=== PATIENT | male | born 1990 | race Two or more races ===

== ENCOUNTER 2017-06-14 15:17 | Inpatient (IN) | payer SELFPAY ==
[~2017-06-14] VITALS: Ht 167.6 cm; Wt 58.7 kg
[2017-06-14] MEDS ORDERED: PANTOPRAZOLE 40 MG/10 ML VIAL IV ONE (22:15)
[2017-06-14] MEDS ORDERED: PHYTONADIONE (VIT K)10 MG/ML 1ML VIAL SUBCUT ONE (22:15)
[2017-06-14 22:18] LABS: Basophils # (auto) 0.1 uL; Eosinophils # (auto) 0.1 uL; Hematocrit 23.6 % (41.0-53.0); Hemoglobin 7.9 g/dL (13.5-17.5)
[2017-06-14 22:20] LABS: Basophils % (auto) 1.1 % (0.0-2.0); Eosinophils % (auto) 0.8 % (0.0-7.0); Lymphocytes # (auto) 2.8 uL; Lymphocytes % (auto) 37.8 % (10.0-50.0); Mean Corpuscular Hemoglobin 27.5 pg (28.0-32.0); Mean Corpuscular Hgb Conc. 33.5 g/dL (32.0-36.0); Mean Platelet Volume 7.1 fL (6.9-10.8); Monocytes # (auto) 0.6 uL; Monocytes % (auto) 7.6 % (0.0-12.0); Neutrophils % (auto) 52.7 % (37.0-80.0); Platelet Count (auto) 279 10^3/uL (140-450); Red Cell Distribution Width 16.9 % (11.8-14.3); White Blood Cell 7.5 10^3/uL (4.4-10.8)
[2017-06-14 22:28] LABS: Urine Bilirubin Negative (Negative); Urine Blood Negative /uL (Negative); Urine Color Colorless (Yellow); Urine Glucose Normal (Normal); Urine Ketone Negative (Negative); Urine Nitrite Negative (Negative); Urine RBC 1 /hpf (0 - 3); Urine Urobilinogen Normal (Negative)
[2017-06-14 22:38] LABS: Albumin 3.3 g/dL (3.4-5.0); BUN/Creatinine Ratio 21.4; Bilirubin, Total 0.3 mg/dL (0.2-1.0); Calcium 7.8 mg/dL (8.5-10.1); Total Protein 7.3 g/dL (6.4-8.2)
[2017-06-14] MEDS ORDERED: SODIUM CHLORIDE 0.9% 1,000 ML IV ONE (23:56)
[2017-06-15] VITALS (10 sets, daily range): BP systolic 114–132; BP diastolic 69–85
[2017-06-15] MEDS ORDERED: ONDANSETRON HCL 4 MG/2 ML VIAL IV PRN (06:00)
[2017-06-15] MEDS ORDERED: MORPHINE SULF INJ 2 MG/ML SYRINGE 1ML IV PRN (06:00)
[2017-06-15] MEDS ORDERED: SODIUM CHLORIDE 0.9% 1,000 ML IV SCH (06:00)
[2017-06-15] MEDS ORDERED: ACETAMINOPHEN 325 MG TAB PO PRN (06:00)
[2017-06-15] MEDS ORDERED: NITROGLYCERIN 0.4 MG SL TAB SL PRN (06:00)
[2017-06-15] MEDS ORDERED: CALCIUM GLUC 4.65meq/50ml D5AE 50 ML IV ONE (06:00)
[2017-06-15] MEDS ORDERED: TEMAZEPAM 15 MG CAP PO PRN (06:00)
[2017-06-15] MEDS ORDERED: HYDROcodone-ACET 5/325MG TAB PO PRN (06:00)
[2017-06-15] MEDS ORDERED: D5W/SOD CHLO 0.9% 1,000 ML IV ONE ×2 (10:00)
[2017-06-15 10:33] LABS: Hemoglobin 7.4 g/dL (13.5-17.5)
[2017-06-15 10:34] LABS: Hematocrit 22.9 % (41.0-53.0)
[2017-06-15] MEDS ORDERED: SODIUM CHLORIDE 0.9% 2,000 ML IV ONE (10:45)
[2017-06-15 10:51] LABS: INR 0.97 (0.9-1.15); Partial Thromboplastin Time 27.2 sec (22.64-33.71); Prothrombin Time 10.6 sec (9.37-12.3)
[2017-06-15] MEDS: PANTOPRAZOLE 40 MG/10 ML VIAL IV SCH ×2 (11:49→22:45)
[2017-06-15 13:34] LABS: Basophils # (auto) 0.1 uL; Eosinophils # (auto) 0 uL; Eosinophils % (auto) 0.5 % (0.0-7.0); Hematocrit 21.3 % (41.0-53.0); Mean Corpuscular Hemoglobin 27.3 pg (28.0-32.0); Monocytes # (auto) 0.3 uL; Platelet Count (auto) 199 10^3/uL (140-450); White Blood Cell 7.2 10^3/uL (4.4-10.8)
[2017-06-15 13:36] LABS: Lymphocytes % (auto) 27.8 % (10.0-50.0); Mean Corpuscular Hgb Conc. 32.6 g/dL (32.0-36.0); Mean Corpuscular Volume 83.8 fL (80.0-100.0); Mean Platelet Volume 6.8 fL (6.9-10.8); Monocytes % (auto) 4.4 % (0.0-12.0); Neutrophils # (auto) 4.8 uL; Neutrophils % (auto) 66.3 % (37.0-80.0)
[2017-06-15 13:44] LABS: Hemoglobin 6.9 g/dL (13.5-17.5)
[2017-06-15] MEDS: SODIUM CHLORIDE 0.9% 1,000 ML IV SCH ×2 (13:46→22:52)
[2017-06-15 17:44] LABS: Urine RBC None Seen /hpf (0 - 3)
[2017-06-15 17:58] LABS: Urine Bilirubin Negative (Negative); Urine Blood Negative /uL (Negative); Urine Color Colorless (Yellow); Urine Glucose Normal (Normal); Urine Ketone Negative (Negative); Urine Nitrite Negative (Negative); Urine Urobilinogen Normal (Negative)
[2017-06-15 22:40] LABS: BUN/Creatinine Ratio 23.3; Calcium 7.4 mg/dL (8.5-10.1); Potassium 3.8 mmol/L (3.5-5.1)
[2017-06-16 04:43] VITALS: BP 105/53
[2017-06-16 05:44] LABS: Basophils # (auto) 0.1 uL; Eosinophils # (auto) 0.1 uL; Eosinophils % (auto) 1.4 % (0.0-7.0); Mean Platelet Volume 7.1 fL (6.9-10.8); Neutrophils # (auto) 4.7 uL; White Blood Cell 7.8 10^3/uL (4.4-10.8)
[2017-06-16 05:46] LABS: Basophils % (auto) 1.1 % (0.0-2.0); Hematocrit 23.8 % (41.0-53.0); Hemoglobin 8.1 g/dL (13.5-17.5); Lymphocytes # (auto) 2.5 uL; Lymphocytes % (auto) 32.6 % (10.0-50.0); Mean Corpuscular Hemoglobin 28.6 pg (28.0-32.0); Mean Corpuscular Hgb Conc. 33.8 g/dL (32.0-36.0); Mean Corpuscular Volume 84.7 fL (80.0-100.0); Monocytes # (auto) 0.3 uL; Monocytes % (auto) 4.5 % (0.0-12.0); Neutrophils % (auto) 60.4 % (37.0-80.0); Nucleated Red Blood Cells % 0.1 %; Platelet Count (auto) 199 10^3/uL (140-450); Red Cell Distribution Width 16.5 % (11.8-14.3)
[2017-06-16 06:05] LABS: Phosphorus 4.9 mg/dL (2.5-4.90); Uric Acid 10.9 mg/dL (3.5-7.2)
[2017-06-16 06:07] LABS: Albumin 2.8 g/dL (3.4-5.0); BUN/Creatinine Ratio 23.5; Bilirubin, Total 0.5 mg/dL (0.2-1.0); Calcium 7.9 mg/dL (8.5-10.1); Potassium 3.9 mmol/L (3.5-5.1); Total Protein 5.9 g/dL (6.4-8.2)
[2017-06-16 08:00] VITALS: BP 105/77
[2017-06-16] MEDS ORDERED: LIDOCAINE VISCOUS 2% 15ML UD ONE (08:33)
[2017-06-16] MEDS ORDERED: diphenhdrAMINE HCL 50 MG/1 ML VL ONE (08:34)
[2017-06-16] MEDS ORDERED: ALLOPURINOL 100 MG TAB PO ONE (08:45)
[2017-06-16] MEDS: SODIUM CHLORIDE 0.9% 1,000 ML IV SCH ×2 (09:00→18:34)
[2017-06-16 09:38] VITALS: BP 105/77
[2017-06-16] MEDS: PANTOPRAZOLE 40 MG/10 ML VIAL IV SCH ×2 (09:52→21:51)
[2017-06-16] MEDS: MIDAZOLAM HCL 5 MG/ML-1ML VIAL ONE ×3 (11:59→12:08)
[2017-06-16] MEDS: fentaNYL CITRATE 100 MCG/2 ML VL ONE ×3 (11:59→12:08)
[2017-06-16 12:40] VITALS: BP 114/69
[2017-06-16] MEDS ORDERED: EPINEPHrine HCL 1 MG/10 ML SYRG ONE (14:44)
[2017-06-16 16:37] VITALS: BP 117/73
[2017-06-16 22:00] VITALS: BP 116/67
[2017-06-17 05:00] VITALS: BP 114/70
[2017-06-17] MEDS: SODIUM CHLORIDE 0.9% 1,000 ML IV SCH (05:00)
[2017-06-17 05:20] LABS: Basophils # (auto) 0.1 uL; Basophils % (auto) 1.1 % (0.0-2.0); Eosinophils # (auto) 0.1 uL; Lymphocytes # (auto) 2.4 uL; Monocytes # (auto) 0.4 uL; Neutrophils # (auto) 3.5 uL; Red Cell Distribution Width 16.5 % (11.8-14.3)
[2017-06-17 05:23] LABS: Eosinophils % (auto) 1.4 % (0.0-7.0); Hematocrit 25.1 % (41.0-53.0); Hemoglobin 8.2 g/dL (13.5-17.5); Lymphocytes % (auto) 37.5 % (10.0-50.0); Mean Corpuscular Hemoglobin 27.6 pg (28.0-32.0); Mean Corpuscular Hgb Conc. 32.8 g/dL (32.0-36.0); Mean Corpuscular Volume 84.2 fL (80.0-100.0); Mean Platelet Volume 6.9 fL (6.9-10.8); Monocytes % (auto) 6.2 % (0.0-12.0); Neutrophils % (auto) 53.8 % (37.0-80.0); Nucleated Red Blood Cells % 0.1 %; Platelet Count (auto) 228 10^3/uL (140-450); White Blood Cell 6.5 10^3/uL (4.4-10.8)
[2017-06-17 05:58] LABS: BUN/Creatinine Ratio 18.5
[2017-06-17 09:08] VITALS: BP 105/55
[2017-06-17] MEDS ORDERED: ALLOPURINOL 100 MG TAB PO SCH (10:00)
[2017-06-17] MEDS: PANTOPRAZOLE 40 MG/10 ML VIAL IV SCH (10:01)
[2017-06-17 12:30] VITALS: BP 112/69
== END 2017-06-17 14:35 | disposition home or self-care (01) | DRG 377 ==
LOC: ER 15:17 → TELE 15:18 → TELE-WESTW 06-15 08:26 → TELE-CENTR 06-15 12:15
PROVIDERS: ADMIT Nurse Practitioner; ATTEND Family Medicine
PROC: 0W3P8ZZ Control Bleeding in Gastrointestinal Tract, Via Natural or Artificial Opening Endoscopic (ICD-10-PCS; principal; 2017-06-15)
PROC: 3E0G8GC Introduction of Other Therapeutic Substance into Upper GI, Via Natural or Artificial Opening Endoscopic (ICD-10-PCS; 2017-06-15)
PROC: 30233N1 Transfusion of Nonautologous Red Blood Cells into Peripheral Vein, Percutaneous Approach (ICD-10-PCS; 2017-06-15)
DX: K92.2 Gastrointestinal hemorrhage, unspecified (principal); G93.40 Encephalopathy, unspecified; I21.3 ST elevation (STEMI) myocardial infarction of unspecified site; I46.9 Cardiac arrest, cause unspecified; I63.9 Cerebral infarction, unspecified; N18.6 End stage renal disease; N17.9 Acute kidney failure, unspecified; I12.0 Hypertensive chronic kidney disease with stage 5 chronic kidney disease or end stage renal disease; D64.9 Anemia, unspecified; E83.51 Hypocalcemia; E86.9 Volume depletion, unspecified; M10.9 Gout, unspecified; F10.10 Alcohol abuse, uncomplicated; R73.9 Hyperglycemia, unspecified; F12.90 Cannabis use, unspecified, uncomplicated; F17.210 Nicotine dependence, cigarettes, uncomplicated; Z90.5 Acquired absence of kidney; Z87.11 Personal history of peptic ulcer disease
CPT/HCPCS: 36415; 36430; 74176; 76775; 80048; 80053; 80307; 80320; 81001; 82270; 83970; 84100; 84550; 85014; 85018; 85025; 85610; 85730; 86850; 86870; 86900; 86901; 86902; 86922; 96361; 96372; 96374; C9113; J2250; J3430

== ENCOUNTER 2019-05-12 07:24 | Inpatient (IN) | payer MEDICAID ==
[~2019-05-12] VITALS: Ht 175.3 cm; Wt 57.5 kg
[2019-05-12 08:08] LABS: Basophils # (auto) 0 uL; Basophils % (auto) 0.3 % (0.0-2.0); Eosinophils # (auto) 0 uL; Eosinophils % (auto) 0.3 % (0.0-7.0); Hematocrit 31.6 % (41.0-53.0); Hemoglobin 10.7 g/dL (13.5-17.5); Lymphocytes # (auto) 1.1 uL; Lymphocytes % (auto) 10.9 % (10.0-50.0); Mean Corpuscular Hemoglobin 30.6 pg (28.0-32.0); Mean Corpuscular Hgb Conc. 33.7 g/dL (32.0-36.0); Mean Corpuscular Volume 90.7 fL (80.0-100.0); Monocytes # (auto) 0.8 uL; Monocytes % (auto) 7.6 % (0.0-12.0); Neutrophils # (auto) 8.4 uL; Neutrophils % (auto) 80.9 % (37.0-80.0); Platelet Count (auto) 271 10^3/uL (140-450); Red Blood Cells 3.48 10^6/uL (4.5-5.90); Red Cell Distribution Width 15.1 % (11.8-14.3); White Blood Cell 10.4 10^3/uL (4.4-10.8)
[2019-05-12 08:15] LABS: Urine Bacteria NONE SEEN /hpf (None Seen); Urine Blood TRACE /uL (Negative); Urine Specific Gravity 1.008 (1.001-1.035); Urine WBC 1 /hpf (0 - 3)
[2019-05-12 08:39] LABS: Potassium 3.7 mmol/L (3.5-5.1)
[2019-05-12 08:39] LABS: Alcohol, Urine < 3.0 mg/dL (0-5); Amphetamine Screen, Urine NEGATIVE (NEGATIVE); Cannabinoid Screen, Urine NEGATIVE (NEGATIVE); Phencyclidine Screen, Urine NEGATIVE (NEGATIVE)
[2019-05-12 08:41] LABS: Barbiturate Scree,Urine NEGATIVE (NEGATIVE); Benzodiazephine Screen, Urine POSITIVE (NEGATIVE); Cocaine Screen, Urine NEGATIVE (NEGATIVE); Opiate Scree,Urine NEGATIVE (NEGATIVE)
[2019-05-12 08:45] LABS: Albumin 3.5 g/dL (3.4-5.0); BUN/Creatinine Ratio 19.9; Bilirubin, Total 0.5 mg/dL (0.2-1.0); Calcium 8.2 mg/dL (8.5-10.1); Total Protein 7.6 g/dL (6.4-8.2)
[2019-05-12] MEDS ORDERED: SODIUM CHLORIDE 0.9% 1,000 ML IV ONE (12:30)
[2019-05-12] MEDS ORDERED: DexAMETHasone SOD PHOS 4 MG/1ML SDV INJ IV ONE (12:30)
[2019-05-12] MEDS ORDERED: ONDANSETRON HCL 4 MG/2 ML VIAL IV PRN (18:00)
[2019-05-12] MEDS ORDERED: ACETAMINOPHEN 500 MG TAB PO PRN (18:00)
[2019-05-12] MEDS ORDERED: NITROGLYCERIN 0.4 MG SL TAB SL PRN (18:00)
[2019-05-12] MEDS ORDERED: MORPHINE SULF INJ 2 MG/ML SYRINGE 1ML IV PRN ×2 (18:00)
[2019-05-12 20:29] VITALS: BP 120/82
[2019-05-12 20:30] VITALS: BP 120/82
--- NOTE | 2019-05-12 20:30 | NUR ---
Telemetry admit from ER JONATHAN VILLEGAS admitted to Telemetry unit after SBAR received. Patient oriented to JACKY WILLIAMSON, RN primary RN, [facility], 246 room, B bed, and unit policies regarding patient care and visiting hours. Patient now on continuous telemetry monitoring, tele box # 5 and telemetry reading on arrival to unit is SR. Patient weighed by bedscale and encouraged to call if they need something. All questions and concerns addressed, patient verbalized understanding. Patient's fiance help with the admission questions. Note:
--- NOTE | 2019-05-12 21:25 | NUR ---
HOSPITALIST RORY CHARLESP CALLED WITH NEW MEDICATION ORDER. READ BACK ORDER AND INPUT INTO COMPUTER.
[2019-05-12] MEDS: PANTOPRAZOLE 40 MG TAB PO SCH (21:56)
[2019-05-12] MEDS: DOCUSATE SOD 100 MG CAP PO SCH (21:56)
[2019-05-13] MEDS ORDERED: METH4TAB7 PO (01:14)
[2019-05-13] MEDS ORDERED: ALLO100T PO (01:14)
[2019-05-13 04:50] VITALS: BP 107/65
--- NOTE | 2019-05-13 07:50 | NUR ---
PATIENT ROUNDS PATIENT LYING IN BED, NO DISTRESS NOTED, BED IN LOWEST POSITION, SIDE RAILS UP X2, CALL LIGHT WITHIN REACH. WILL CONTINUE TO MONITOR.
[2019-05-13 07:55] LABS: Basophils # (auto) 0 uL; Basophils % (auto) 0.5 % (0.0-2.0); Eosinophils # (auto) 0 uL; Hemoglobin 8.9 g/dL (13.5-17.5); Lymphocytes # (auto) 0.9 uL; Lymphocytes % (auto) 10.7 % (10.0-50.0); Mean Corpuscular Hemoglobin 30.9 pg (28.0-32.0); Mean Corpuscular Hgb Conc. 34.3 g/dL (32.0-36.0); Mean Corpuscular Volume 90.1 fL (80.0-100.0); Monocytes # (auto) 0.5 uL; Monocytes % (auto) 6.2 % (0.0-12.0); Neutrophils # (auto) 6.7 uL; Neutrophils % (auto) 82.6 % (37.0-80.0); Platelet Count (auto) 246 10^3/uL (140-450); Red Blood Cells 2.89 10^6/uL (4.5-5.90); Red Cell Distribution Width 15.1 % (11.8-14.3); White Blood Cell 8.1 10^3/uL (4.4-10.8)
[2019-05-13 08:14] LABS: Calcium 8.4 mg/dL (8.5-10.1); Potassium 3.5 mmol/L (3.5-5.1)
[2019-05-13 08:20] LABS: BUN/Creatinine Ratio 20.3; Bilirubin, Total 0.4 mg/dL (0.2-1.0); Phosphorus 6.6 mg/dL (2.5-4.90); Total Protein 6.7 g/dL (6.4-8.2)
[2019-05-13] MEDS: SEVELAMER 800 MG TAB PO SCH ×3 (08:35→18:42)
[2019-05-13 09:00] VITALS: BP 122/87
[2019-05-13] MEDS: PANTOPRAZOLE 40 MG TAB PO SCH ×2 (09:46→21:34)
[2019-05-13] MEDS: DOCUSATE SOD 100 MG CAP PO SCH ×2 (09:46→21:34)
[2019-05-13] MEDS ORDERED: FAMOTIDINE 20 MG TAB PO SCH (10:00)
--- NOTE | 2019-05-13 11:11 | NUR ---
DR HSU AT BEDSIDE PATIENT UPDATED ON PLAN OF CARE AND PENDING UROLOGY CONSULT THAT WAS PLACED BY DR HSU, ALL QUESTIONS AND CONCERNS ADDRESSED. PATIENT VERBALIZED AGREEMENT AND UNDERSTANDING ON PLAN OF CARE.
[2019-05-13 13:00] VITALS: BP 123/82
--- NOTE | 2019-05-13 13:35 | NUR ---
MD ROUNDS DR CONNORS IN TO SEE PATIENT-PATIENT UPDATED ON POC, DR CONNORS TO REACH DR GILMORE REGARDING PENDING UROLOGY CONSULT
[2019-05-13] MEDS ORDERED: LACTULOSE 20Gm/30ML SOLN PO ONE (13:45)
[2019-05-13 17:00] VITALS: BP 134/81
--- NOTE | 2019-05-13 17:23 | NUR ---
DR DEIRDRE GILMORE PLACED ORDERS IN COMPUTER--PATIENT STATED DR GILMORE DID NOT COME IN TO SEE HIM YET, I-BEDSIDE RN- HAVE NOT SEEN DR GILMORE AT THIS TIME- PENDING ORDER TO PLACE TUCKER CATHETER- PATIENT UNAWARE OF THIS ORDER AND WANTS TO HOLD OFF AT THIS TIME. PATIENT IS URINATING WELL WITH URINAL AND IS ALERT AND ORIENTED AND AMBULATORY. PATIENT DENIES ANY ISSUES WITH URINATION.
--- NOTE | 2019-05-13 19:20 | NUR ---
RECEIVED PATIENT, AWAKE, ALERT, ORIENTED X4. NO S/S OF RESPIRATORY DISTRESS, DENIES ANY PAIN. ORIENTED ON PLAN OF CARE. BED IS LOCKED AND IN LOWEST POSITION, SIDE RAILS UP X2, CALL LIGHT WITHIN REACH. WILL CONTINUE TO MONITOR.
[2019-05-13] MEDS: SODIUM BICARBONATE 650 MG TAB PO SCH (21:35)
[2019-05-13 22:00] VITALS: BP 142/85
--- NOTE | 2019-05-14 03:19 | NUR ---
CARE ENDORSED TO MANUELA STEPHENS
[2019-05-14] MEDS: HYDROcodone-ACET 5/325MG TAB PO PRN ×2 (04:36→17:28)
[2019-05-14 05:00] VITALS: BP 121/75
--- NOTE | 2019-05-14 05:57 | NUR ---
Smith inserted 14FR inserted at this time. Patient tolerated well. Patient draining clear yellow urine. Will continue to monitor.
[2019-05-14 06:44] LABS: BUN/Creatinine Ratio 19.8; Calcium 8.3 mg/dL (8.5-10.1); Potassium 3.6 mmol/L (3.5-5.1)
--- NOTE | 2019-05-14 06:46 | NUR ---
Critical lab Bun drawn today at 105. This is a decrease in value from 106. MD hinton. Will endorse to tere ROY.
[2019-05-14 08:00] VITALS: BP 128/84
[2019-05-14] MEDS: DOCUSATE SOD 100 MG CAP PO SCH (08:50)
[2019-05-14] MEDS: SODIUM BICARBONATE 650 MG TAB PO SCH (08:50)
[2019-05-14] MEDS: SEVELAMER 800 MG TAB PO SCH ×3 (08:50→17:27)
[2019-05-14 09:00] VITALS: BP 128/84
[2019-05-14] MEDS ORDERED: LACTULOSE 20Gm/30ML SOLN PO SCH (10:00)
[2019-05-14] MEDS: PANTOPRAZOLE 40 MG TAB PO SCH (10:38)
[2019-05-14] MEDS ORDERED: FUROSEMIDE 40 MG/4 ML VIAL ONE (12:07)
--- NOTE | 2019-05-14 12:30 | NUR ---
OBTAINED NEW ORDER FROM DR. CONNORS PREDNISONE 20MG PO DAILY. ORDER READ BACK AND VERIFIED, WILL CARRY OUT ORDER.
[2019-05-14 13:00] VITALS: BP_SYST 111; BP_SYST 120; BP_DIAS 65; BP_DIAS 79
[2019-05-14] MEDS ORDERED: predniSONE 20 MG TAB PO ONE (13:15)
[2019-05-14] MEDS ORDERED: ALLOPURINOL 100 MG TAB PO ONE (14:00)
[2019-05-14] MEDS ORDERED: PRE1T PO (14:18)
[2019-05-14 15:35] VITALS: BP 122/80
[2019-05-14 17:00] VITALS: BP 124/82
--- NOTE | 2019-05-14 17:47 | NUR ---
Discharge instructions given as ordered. Encourage to follow up with PCP AND DR. HSU as instructed. All questions and concerns addressed. Patient verbalized understanding. Medication reconciliation form completed and copy given to patient. IV removed with catheter intact, pressure dressing applied, lubin catheter removed, Pt able to urinate without any difficulty . Telemetry unit returned to ICU. Patient taken to vehicle via wheelchair with all personal belongings, accompanied by staff and family member. No distress noted at time of departure.
[2019-05-15] MEDS ORDERED: predniSONE 20 MG TAB PO SCH (10:00)
[2019-05-15] MEDS ORDERED: ALLOPURINOL 100 MG TAB PO SCH (10:00)
== END 2019-05-14 18:10 | disposition home or self-care (01) | DRG 468 ==
LOC: ER 07:24 → OVERFLOW 07:25 → TELE-EAST 20:25
PROVIDERS: ADMIT Nurse Practitioner Acute Care; ATTEND Internal Medicine
DX: N28.1 Cyst of kidney, acquired (principal); N17.9 Acute kidney failure, unspecified; N13.9 Obstructive and reflux uropathy, unspecified; N13.30 Unspecified hydronephrosis; D63.8 Anemia in other chronic diseases classified elsewhere; K59.01 Slow transit constipation; M10.9 Gout, unspecified; N18.5 Chronic kidney disease, stage 5; F17.210 Nicotine dependence, cigarettes, uncomplicated; F15.90 Other stimulant use, unspecified, uncomplicated; M54.5 Low back pain; F19.10 Other psychoactive substance abuse, uncomplicated; Z90.5 Acquired absence of kidney; Z87.11 Personal history of peptic ulcer disease; Z99.2 Dependence on renal dialysis; K35.80 Unspecified acute appendicitis
CPT/HCPCS: 36415; 71046; 74176; 76700; 78707; 80048; 80053; 80307; 81001; 84100; 84443; 84550; 85025; 87081; 93005; G0378; J1100

== ENCOUNTER 2019-12-28 18:10 | Emergency (ER) | payer MEDICAID ==
[~2019-12-28] VITALS: Ht 167.6 cm; Wt 65.8 kg
[~2019-12-28 18:10] MED LIST: ALLO100T PO; PRE1T PO
[2019-12-28 19:10] LABS: Basophils # (auto) 0.1 10 ^3/uL (0-0.2); Basophils % (auto) 1.2 % (0.0-2.0); Eosinophils # (auto) 0 10 ^3/uL (0-0.8); Eosinophils % (auto) 0.4 % (0.0-7.0); Hematocrit 33.9 % (41.0-53.0); Hemoglobin 11.2 g/dL (13.5-17.5); Lymphocytes # (auto) 1.8 10 ^3/uL (0.4-5.4); Mean Corpuscular Hemoglobin 30.7 pg (28.0-32.0); Mean Corpuscular Hgb Conc. 33.1 g/dL (32.0-36.0); Mean Corpuscular Volume 92.8 fL (80.0-100.0); Monocytes # (auto) 0.4 10 ^3/uL (0-1.3); Neutrophils # (auto) 6.8 10 ^3/uL (1.6-8.6); Neutrophils % (auto) 74.4 % (37.0-80.0); Platelet Count (auto) 212 10^3/uL (140-450); Red Blood Cells 3.65 10^6/uL (4.5-5.90); Red Cell Distribution Width 15.1 % (11.8-14.3); White Blood Cell 9.2 10^3/uL (4.4-10.8)
[2019-12-28 19:18] LABS: INR 0.96 (0.9-1.15)
[2019-12-28 19:24] LABS: Chloride 104 mmol/L (98-107); Potassium 4.1 mmol/L (3.5-5.1); Sodium 136 mmol/L (136-145)
[2019-12-28 19:35] LABS: Alanine Aminotransferase 25 U/L (16-61); Alkaline Phosphatase 95 U/L (45-117); Anion Gap 14 (5-15); Aspartate Aminotransferase 17 U/L (15-37); BUN/Creatinine Ratio 14.4; Bilirubin, Total 0.5 mg/dL (0.2-1.0); Calcium 8.4 mg/dL (8.5-10.1); Carbon Dioxide 18 mmol/L (21-32); GFR African American 14 mL/min; GFR Non-African American 12 mL/min; Glucose 105 mg/dL (74-106); Magnesium 2.8 mg/dL (1.6-2.6); Total Protein 8.3 g/dL (6.4-8.2)
[2019-12-28 19:39] LABS: Blood Urea Nitrogen 88 mg/dL (7-18)
[2019-12-28 19:50] VITALS: BP 140/92
== END 2019-12-28 19:54 | disposition home or self-care (01) ==
LOC: ER 18:10
DX: E87.8 Other disorders of electrolyte and fluid balance, not elsewhere classified (principal); R79.9 Abnormal finding of blood chemistry, unspecified; E87.5 Hyperkalemia; F17.210 Nicotine dependence, cigarettes, uncomplicated
CPT/HCPCS: 36415; 71045; 80053; 83735; 84484; 85025; 85610; 85730; 93005